=== PATIENT | female | born 1950 | race Caucasian/White ===

== ENCOUNTER 2019-02-09 22:33 | Emergency (ER) | payer MEDICARE, OTHER ==
[~2019-02-09] VITALS: Ht 170.2 cm; Wt 77.1 kg
[~2019-02-09 22:33] MED LIST: Z.0.ATIVAN2 MG PO; Z.0.CRESTOR20 MG PO; Z.0.PROZAC20 MG PO
[2019-02-09] MEDS ORDERED: KETOROLAC TROMETHAMINE 30 MG/ML VIAL IV STA (22:59)
[2019-02-09] MEDS ORDERED: KETOROLAC TROMETHAMINE 30 MG/ML VIAL ONE (23:04)
[2019-02-09] MEDS ORDERED: ULTRAM50 MG PO (23:08)
[2019-02-09] MEDS ORDERED: MEDROL4 MG PO (23:08)
[2019-02-09] MEDS ORDERED: COLACE100 MG PO (23:08)
--- NOTE | 2019-02-09 23:43 | Diagnostic Imaging Report ---
Lumbar Spine Radiographs: 3 views HISTORY: Pain COMPARISON: None available. DISCUSSION: Some of the osseous structures are partially obscured by stool and bowel gas. There are five non-rib bearing lumbar vertebral bodies. Mild levoscoliosis of the lumbar spine. Normal alignment of vertebral bodies. No displaced fracture or compression deformity is identified. Vertebral body heights are maintained. Mild to moderate degenerative changes, most notable at L5-S1. Multilevel lower lumbar spine facet arthropathy. Atherosclerotic calcification of abdominal aorta. IMPRESSION: No acute radiographic abnormality. Mild to moderate degenerative changes, most notable at L5-S1. Signed by: Dr. Allen Hernandez MD on 02/09/2019 11:39 PM
[2019-02-09] MEDS ORDERED: HYDROCODONE/APAP 5MG-325MG TAB ONE (23:54)
[2019-02-09 23:58] VITALS: BP 154/73
[2019-02-10] MEDS ORDERED: HYDROCODONE/APAP 5MG-325MG TAB PO ONE
== END 2019-02-09 23:50 | disposition home or self-care (01) ==
LOC: FSED 22:33
DX: M54.42 Lumbago with sciatica, left side (principal); I10 Essential (primary) hypertension; E11.9 Type 2 diabetes mellitus without complications
CPT/HCPCS: 72100; 99283; J1885

== ENCOUNTER 2019-03-12 20:26 | Emergency (ER) | payer MEDICARE, OTHER ==
[~2019-03-12] VITALS: Ht 170.2 cm; Wt 77.1 kg
[~2019-03-12 20:26] MED LIST changes: +COLACE100 MG PO; +MEDROL4 MG PO; +ULTRAM50 MG PO
--- OUTSIDE RECORDS SUMMARY | 2019-03-12 20:28 | XMS REPORT ---
Author Author [facility] Address Unknown Phone Unavailable Care Team Providers Care Oil Heaterman Name Role Phone Karina TABOR Unavailable Unavailable Payers Payer Name Policy Type Policy Number Effective Date Expiration Date Problems This patient has no known problems. Allergies, Adverse Reactions, Alerts Allergy Name Allergy Type Status Severity Reaction(s) Onset Date Inactive Date Treating Clinician Comments Sulfa (Sulfonamide Antibiotics) DA Active SV 2019-03-06 00:00:00 No Known Contrast Allergies DA Active U 2008-10-09 00:00:00 No Known Food Allergies DA Active U 2008-10-09 00:00:00 No Known Other Allergies DA Active U 2008-10-09 00:00:00 SULFA DRUGS DA Active U 2008-10-09 00:00:00 Sulfa (Sulfonamide Antibiotics) DA Active U 2008-10-08 00:00:00 sulfacetamide DA Active U 2007-05-25 00:00:00 Not Converted 192. See Text. DA Active U 2007-05-25 00:00:00 Medications This patient has no known medications. Encounters Start Date/Time End Date/Time Encounter Type Admission Type Attending Clinicians Care Facility Care Department Encounter ID 2017-04-12 10:43:58 2017-04-12 10:43:58 Emergency [facility] [id number] 2017-04-12 07:26:30 2017-04-12 07:26:30 Emergency [facility] [id number] Results Test Description Test Time Test Comments Text Results Atomic Results Result Comments GLUBED 2019-03-07 16:31:00 GLUBED (test code=GLUBED) 256 mg/dL 74-106 Performed by certified creping machine operator helper at [facility] [id number] 11:03:00* Test Item Value Reference Range Comments GLUBED (test code=GLUBED) 206 mg/dL 74-106 Performed by certified creping machine operator helper at [facility] [id number] 08:09:00* Test Item Value Reference Range Comments GLUBED (test code=GLUBED) 229 mg/dL 74-106 Performed by certified creping machine operator helper at [facility] BASIC METABOLIC [id number] 04:08:00* Test Item Value Reference Range Comments SODIUM (test code=NA) 137 mmol/L 136-145 POTASSIUM (test code=K) 3.7 mmol/L 3.5-5.1 CHLORIDE (test code=CL) 103.0 mmol/L 98-107 CARBON DIOXIDE (test code=CO2) 25.0 mmol/L 21-32 ANION GAP (test code=GAP) 12.7 10-20 GLUCOSE (test code=GLU) 256 mg/dL 74-106 BLOOD UREA NITROGEN (test code=BUN) 22 mg/dL 7-18 GLOMERULAR FILTRATION RATE (test code=GFR) > 60 mL/min >=60 Estimated GFR by using Modified MDRD formula.Chronic kidney disease is defined as either kidney damageor GFR <60 mL/min/1.73 m2 for >3 months. CREATININE (test code=CREAT) 0.60 mg/dL 0.55-1.02 Note change in reference range due to change in reagent. BUN/CREATININE RATIO (test code=BUN/CREA) 36.7 10-20 CALCIUM (test code=CA) 8.5 mg/dL 8.5-10.1 BASIC METABOLIC [id number] 03:53:00* Test Item Value Reference Range Comments SODIUM (test code=NA) 137 mmol/L 136-145 POTASSIUM (test code=K) 3.7 mmol/L 3.5-5.1 CHLORIDE (test code=CL) 103.0 mmol/L 98-107 CARBON DIOXIDE (test code=CO2) mmol/L 21-32 ANION GAP (test code=GAP) 10-20 GLUCOSE (test code=GLU) mg/dL 74-106 BLOOD UREA NITROGEN (test code=BUN) mg/dL 7-18 GLOMERULAR FILTRATION RATE (test code=GFR) mL/min >=60 CREATININE (test code=CREAT) mg/dL 0.55-1.02 BUN/CREATININE RATIO (test code=BUN/CREA) 10-20 CALCIUM (test code=CA) mg/dL 8.5-10.1 CPK-MB [id number] 03:30:00* Test Item Value Reference Range Comments CREATINE KINASE (CK) (test code=CK) 81 IUnit/L 26-208 CKMB (test code=CKMBT) 8.1 ng/mL 0-6.0 RELATIVE % INDEX (test code=REL%) 10.00 % 0.00-2.50 "If the total CK is elevated, the CKMB Fraction must beinterpreted as a Relative % Index, Normal is less than 2.5%"NOTE: Relative % Index is not valid with a normal total CK. CBC W/AUTO [id number] 03:27:00* Test Item Value Reference Range Comments WHITE BLOOD CELL (test code=WBC) 13.4 K/mm3 4.5-12.5 RED BLOOD CELL (test code=RBC) 4.35 mill/mm3 3.7-5.2 HEMOGLOBIN (test code=HGB) 12.7 gram/dL 11.5-15.5 HEMATOCRIT (test code=HCT) 37.6 % 36.0-46.0 MEAN CELL VOLUME (test code=MCV) 86.4 fL 80-98 MEAN CELL HGB (test code=MCH) 29.2 picogram 27.0-33.0 MEAN CELL HGB CONCETRATION (test code=MCHC) 33.8 gram/dL 33.0-36.0 RED CELL DISTRIBUTION WIDTH (test code=RDW) 12.8 % 11.6-16.2 RED CELL DISTRIBUTION WIDTH SD (test code=RDW-SD) 40.2 fL 37.0-51.0 PLATELET COUNT (test code=PLT) 265 K/mm3 150-450 MEAN PLATELET VOLUME (test code=MPV) 9.6 fL 6.7-11.0 NEUTROPHIL % (test code=NT%) 72.2 % 39.0-69.0 IMMATURE GRANULOCYTE % (test code=IG%) 1.9 % 0.0-5.0 LYMPHOCYTE % (test code=LY%) 17.6 % 25.0-55.0 MONOCYTE % (test code=MO%) 6.8 % 0.0-10.0 EOSINOPHIL % (test code=EO%) 1.2 % 0.0-5.0 BASOPHIL % (test code=BA%) 0.3 % 0.0-1.0 NUCLEATED RBC % (test code=NRBC%) 0.0 % 0-0 NEUTROPHIL # (test code=NT#) 9.70 K/mm3 1.8-7.7 IMMATURE GRANULOCYTE # (test code=IG#) 0.25 x10 3/uL 0-0.03 LYMPHOCYTE # (test code=LY#) 2.36 K/mm3 1.0-5.0 MONOCYTE # (test code=MO#) 0.91 K/mm3 0-0.8 EOSINOPHIL # (test code=EO#) 0.16 K/mm3 0.0-0.5 BASOPHIL # (test code=BA#) 0.04 K/mm3 0.0-0.2 NUCLEATED RBC # (test code=NRBC#) 0.00 K/mm3 0.0-0.1 MANUAL DIFF REQUIRED (test code=MDIFF) NO [id number] 03:22:00* Test Item Value Reference Range Comments GLYCOSYLATED HEMOGLOBIN (HA1C) (test code=GLYHGB) 8.6 % HbA1 4.8-6.0 ESTIMATED AVERAGE GLUCOSE (test code=EAG) 200 MG/DL LIPID PROFILE (CORONARY RISK)2019-03-07 03:22:00* Test Item Value Reference Range Comments TRIGLYCERIDES (test code=TRIG) 150 mg/dL 20-150 CHOLESTEROL (test code=CHOL) 153 mg/dL 0-200 CHOLESTEROL/HDL RATIO (test code=CHOLHDL) 3.0 RATIO 0-4.9 RISK ASSOCIATED WITH CHOL/HDL RATIOS: Risk Male Female1/2 AVERAGE 3.43 3.27AVERAGE 4.97 4.442X AVERAGE 9.55 7.053X AVERAGE 23.39 11.04 REFERENCE VALUE IS RELATED TO RISK LEVELS ASRECOMMENDED BY THE ARLIN. HEART, LUNG, AND BLOOD INST. HDL CHOLESTEROL (test code=HDL) 39 mg/dL 40-60 LIPOPROTEIN LDL (test code=LDL) 93 mg/dL 100-129 Reference Interval: mg/dL mmol/L Optimal <100 <2.6Near/above optimal 100-129 2.6- 3.3Borderline High 130-159 3.4-4.1High 160-189 4.1-4.9Very High >=190 >=4.9=========This LDL result is a direct measurement.========= [id number] 23:46:00* Test Item Value Reference Range Comments TROPONIN-I (test code=TROPI) 0.040 ng/mL 0-0.045 COMMENTS TO BOILING OFF WINDER: COLLECT 3 HOURS AFTER PREVIOUS [id number] 21:20:00* Test Item Value Reference Range Comments TROPONIN-I (test code=TROPI) 0.034 ng/mL 0-0.045 COMMENTS TO BOILING OFF WINDER: COLLECT 3 HOURS AFTER PREVIOUS [id number] 21:16:00* Test Item Value Reference Range Comments GLUBED (test code=GLUBED) 252 mg/dL 74-106 Performed by certified creping machine operator helper at [facility] CPK-MB [id number] 16:41:00* Test Item Value Reference Range Comments CREATINE KINASE (CK) (test code=CK) 171 IUnit/L 26-208 CKMB (test code=CKMBT) 13.4 ng/mL 0-6.0 RELATIVE % INDEX (test code=REL%) 7.84 % 0.00-2.50 "If the total CK is elevated, the CKMB Fraction must beinterpreted as a Relative % Index, Normal is less than 2.5%"NOTE: Relative % Index is not valid with a normal total CK. B-TYPE NATRIURETIC [id number] 14:08:00* Test Item Value Reference Range Comments B-TYPE NATRIURETIC PEPTIDE (test code=BNP) 105.56 pgram/mL 0-100 BASIC METABOLIC [id number] 14:00:00* Test Item Value Reference Range Comments SODIUM (test code=NA) 134 mmol/L 136-145 POTASSIUM (test code=K) 3.3 mmol/L 3.5-5.1 CHLORIDE (test code=CL) 101.0 mmol/L 98-107 CARBON DIOXIDE (test code=CO2) 25.0 mmol/L 21-32 ANION GAP (test code=GAP) 11.3 10-20 GLUCOSE (test code=GLU) 209 mg/dL 74-106 BLOOD UREA NITROGEN (test code=BUN) 26 mg/dL 7-18 GLOMERULAR FILTRATION RATE (test code=GFR) > 60 mL/min >=60 Estimated GFR by using Modified MDRD formula.Chronic kidney disease is defined as either kidney damageor GFR <60 mL/min/1.73 m2 for >3 months. CREATININE (test code=CREAT) 0.70 mg/dL 0.55-1.02 Note change in reference range due to change in reagent. BUN/CREATININE RATIO (test code=BUN/CREA) 37.1 10-20 CALCIUM (test code=CA) 9.6 mg/dL 8.5-10.1 [id number] 14:00:00* Test Item Value Reference Range Comments TROPONIN-I (test code=TROPI) 0.046 ng/mL 0-0.045 Results called to [id number] by DENNY 03/06/19 1359Critical results verified and read back by Nurse? Y BASIC METABOLIC [id number] 13:39:00* Test Item Value Reference Range Comments SODIUM (test code=NA) 134 mmol/L 136-145 POTASSIUM (test code=K) 3.3 mmol/L 3.5-5.1 CHLORIDE (test code=CL) 101.0 mmol/L 98-107 CARBON DIOXIDE (test code=CO2) mmol/L 21-32 ANION GAP (test code=GAP) 10-20 GLUCOSE (test code=GLU) mg/dL 74-106 BLOOD UREA NITROGEN (test code=BUN) mg/dL 7-18 GLOMERULAR FILTRATION RATE (test code=GFR) mL/min >=60 CREATININE (test code=CREAT) mg/dL 0.55-1.02 BUN/CREATININE RATIO (test code=BUN/CREA) 10-20 CALCIUM (test code=CA) 9.6 mg/dL 8.5-10.1 [id number] 13:39:00* Test Item Value Reference Range Comments TROPONIN-I (test code=TROPI) ng/mL 0-0.045 CBC W/O [id number] 13:31:00* Test Item Value Reference Range Comments WHITE BLOOD CELL (test code=WBC) 17.5 K/mm3 4.5-12.5 RED BLOOD CELL (test code=RBC) 4.94 mill/mm3 3.7-5.2 HEMOGLOBIN (test code=HGB) 14.3 gram/dL 11.5-15.5 HEMATOCRIT (test code=HCT) 43.5 % 36.0-46.0 MEAN CELL VOLUME (test code=MCV) 88.1 fL 80-98 MEAN CELL HGB (test code=MCH) 28.9 picogram 27.0-33.0 MEAN CELL HGB CONCETRATION (test code=MCHC) 32.9 gram/dL 33.0-36.0 RED CELL DISTRIBUTION WIDTH (test code=RDW) 12.7 % 11.6-16.2 PLATELET COUNT (test code=PLT) 272 K/mm3 150-450 MEAN PLATELET VOLUME (test code=MPV) 10.3 fL 6.7-11.0 CBC W/O [id number] 13:27:00* Test Item Value Reference Range Comments WHITE BLOOD CELL (test code=WBC) K/mm3 4.5-12.5 RED BLOOD CELL (test code=RBC) mill/mm3 3.7-5.2 HEMOGLOBIN (test code=HGB) 14.3 gram/dL 11.5-15.5 HEMATOCRIT (test code=HCT) 43.5 % 36.0-46.0 MEAN CELL VOLUME (test code=MCV) fL 80-98 MEAN CELL HGB (test code=MCH) picogram 27.0-33.0 MEAN CELL HGB CONCETRATION (test code=MCHC) gram/dL 33.0-36.0 RED CELL DISTRIBUTION WIDTH (test code=RDW) % 11.6-16.2 PLATELET COUNT (test code=PLT) K/mm3 150-450 MEAN PLATELET VOLUME (test code=MPV) fL 6.7-11.0 - XR CHEST 1 [id number] 12:00:00 FAX: Timmy Devries MD [place]: St: REG Name: IGLESIA RAE [facility] : [birth year] Age/S: 68/F [address] Unit #: [id number] Loc: [place] [address] Phys: Timmy Devries MD Acct: [id number] Dis Date: Status: REG ER PHONE #: [phone] Exam Date: 03/06/2019 1140 FAX #: [phone] Reason: Shortness of Breath EXAMS: CPT CODE: [id number] XR CHEST 1 V 33230 HISTORY: Shortness of breath. COMPARISON: May 26, 2007. No acute infiltrates, effusion or congestion is noted. Hyperinflation. Calcified granuloma in the right upper lobe and left lower lobe. Cardiomegaly. Rotatory dextroscoliosis of the dorsal spine. IMPRESSION: No acute i nfiltrates, effusion or congestion. at 1200 Reported and signed by: Caio Canchola M.D. CC: Timmy Devries MD Technologist: CHICO DIA, RT(R); Ginny cobos RT(R) Trnscrd Date/Time/By: 03/06/2019 (1200) : By: [email or web address] Orig Print D/T: S: 03/06/2019 (1937) PAGE 1 Signed Report L SPINE 2-3 VEWS - HOPD 2019-02-09 23:37:00 [place] [address] Patient Name: IGLESIA NAVA MR #: [id number] : 1950 Age/Sex: 68/F Req #: [id number] Adm Physician: Ordered by: CLEMENTE TAOBR MD Report #: [id number] Location: [facility] Room/Bed: Procedure: [id number] HOPD/L SPINE 2-3 VEWS - HOPD Exam Date: 02/09/19 Ex am Time: 2311 REPORT STATUS: Signed Lumbar Spine Radiographs: 3 views HISTORY: Pain COMPARISON: None available. DISCUSSION: Some of the osseous structures are partially obs cured by stool and bowel gas. There are five non-rib bearing lumbar vertebr al bodies. Mild levoscoliosis of the lumbar spine. Normal alignment of vertebr al bodies. No displaced fracture or compression deformity is identified. Ve rtebral body heights are maintained. Mild to moderate degenerative changes, mo st notable at L5-S1. Multilevel lower lumbar spine facet arthropathy. Athero sclerotic calcification of abdominal aorta. IMPRESSION: No acute radio graphic abnormality. Mild to moderate degenerative changes, most notable at L5 -S1. Signed by: Dr. Allen Cardenas MD on 02/09/2019 11:39 PM Dictated By: ALLEN CARDENAS MD [phone] Transcribed By: BARTOLOME on 02/09/19 6958 COPY TO: CLEMENTE TABOR SCR MAMM BILATERAL ORI CAD [id number] 16:07:53 - SCR MAMM BILATERAL ORI CAD DIGITALBILATERAL DIGITAL SCREENING MAMMOGRAM 3D/2D WITH CAD: 06/17/2018CLINICAL: Asymptomatic. Digital breast tomosynthesis was performed in addition to routine CC and MLO views. Current mammographic images were evaluated by either a [employer] M-Vu or a [employer] CAD (computer aided detection system). Comparison is made to exams dated 08/22/2016 mammogram - [facility] and 07/17/2011 mammogram - [facility]. There are scattered fibroglandular tissues in both breasts. No suspicious mass, architectural distortion, malignant type calcification, or lymph node abnormali ty detected. Breast architecture is stable compared to prior exams.IMPRESSION: NEGATIVEThere is no mammographic evidence of malignancy. Resume annual screening mammography in one year. Eduar orlando/cruz:06/18/2018 16:0 7:53 copy to: Syl Contreras, ph: [phone], fax: [phone] Tech nologist: Della DU, [facility] sent: BIRADS 1-2 Lucinda l Mammogram BI-RADS: 1 Negative
[2019-03-12 21:19] LABS: BASOPHILS % 0.2 % (0.0-1.0); BILIRUBIN,URINE NEGATIVE (NEGATIVE); CLARITY,URINE SL CLOUDY (CLEAR); COLOR,URINE YELLOW (YELLOW); EOSINOPHILS # (AUTO) 0.2 (0.0-0.4); EOSINOPHILS % 2.1 % (0.0-6.0); HEMATOCRIT 42.5 % (34.2-44.1); HEMOGLOBIN 14.5 g/dL (12.0-16.0); KETONES,URINE NEGATIVE (NEGATIVE); LEUKOCYTE ESTERASE ,URINE TRACE (NEGATIVE); MEAN CORPUSCULAR HEMOGLOBIN 29.2 pg (28-32); MEAN CORPUSCULAR HGB CONC 34.1 g/dL (31-35); MEAN CORPUSCULAR VOLUME 85.7 fL (81-99); MONOCYTES # (AUTO) 0.7 (0.2-0.8); MONOCYTES % 6.9 % (4.4-11.3); NEUTROPHILS # (AUTO) 7.4 (2.1-6.9); NEUTROPHILS % 70.7 % (38.7-80.0); NITRITE,URINE NEGATIVE (NEGATIVE); PLATELET COUNT 293 x10e3/uL (140-360); PROTEIN,URINE DIPSTICK NEGATIVE (NEGATIVE); RED BLOOD COUNT 4.96 x10e6/uL (3.6-5.1); RED CELL DISTRIBUTION WIDTH 12.8 % (11.7-14.4); URINE UROBILINOGEN 0.2 mg/dL (0.2 - 1)
[2019-03-12 21:36] LABS: ALANINE AMINOTRANSFERASE 45 IU/L (0-55); ALBUMIN 3.8 g/dL (3.5-5.0); ALBUMIN/GLOBULIN RATIO 1.1 (0.8-2.0); ALKALINE PHOSPHATASE 52 IU/L (40-150); ANION GAP 19.1 mmol/L (8-16); BLOOD UREA NITROGEN 27 mg/dL (7-26); BUN/CREATININE RATIO 31 (6-25); CALCIUM 9.8 mg/dL (8.4-10.2); CARBON DIOXIDE 22 mmol/L (22-29); CHLORIDE 97 mmol/L (98-107); CREATINE KINASE 55 IU/L (29-168); CREATININE, SERUM 0.86 mg/dL (0.57-1.11); EST GLOMERULAR FILTRATION RATE > 60 ML/MIN (60-); GLUCOSE 338 mg/dL (74-118); POTASSIUM 3.1 mmol/L (3.5-5.1); SODIUM 135 mmol/L (136-145)
[2019-03-12 21:58] LABS: BACTERIA,URINE FEW /HPF; EPITHELIAL CELLS,URINE FEW /LPF; WBC,URINE (MAN) 0-5 /HPF (0-5)
[2019-03-12] MEDS ORDERED: IOPAMIDOL 370 MG/ML 200 ML INFUS..BTL INJ ONE (22:48)
[2019-03-12] MEDS ORDERED: SODIUM CHLORIDE 0.9% 50ML 50 ML ONE (22:48)
--- NOTE | 2019-03-12 23:18 | Diagnostic Imaging Report ---
EXAM: CT Chest WITH contrast 03/12/2019 8:44 PM INDICATION: Shortness of breath. COMPARISON: None TECHNIQUE: Chest was scanned utilizing a multidetector helical scanner from the lung apex through the level of the adrenal glands without administration of IV contrast. Coronal and sagittal reformations were obtained. Routine protocol was performed. IV CONTRAST: 100 cc Isovue 300 RADIATION DOSE: Total DLP: 510.95 mGy*cm Estimated effective dose: (DLP x 0.014 x size factor) mSv COMPLICATIONS: None FINDINGS: LINES/ TUBES: None. LUNGS AND AIRWAYS: Mild scattered patchy groundglass density bilaterally are nonspecific. Patchy density in the lingula posteriorly may represent atelectasis. Airways are normal. PLEURA: Bilateral calcified pleural plaques. There is no pleural effusion or pneumothorax. HEART AND MEDIASTINUM: The thyroid gland is normal. No mediastinal, hilar or axillary lymphadenopathy. The heart is normal in size, however, there is diffuse thickening of the left ventricular myocardium with the intraventricular septum measuring up to 2.5 cm. Calcifications of the left LAD and left circumflex. There is no pericardial effusion. Mild calcification of the aortic arch without aneurysmal dilatation. Lipomatosis of the mediastinum. UPPER ABDOMEN: Limited non-contrast views of the upper abdomen show near diffuse ill-defined low-attenuation throughout the medial segment of the left hepatic lobe which may represent focal fatty infiltration not completely evaluated with this examination. The adrenal glands are normal. BONES: DJD of the glenohumeral joints bilaterally. The peak screws transfix the right humeral head. Degenerative changes of the thoracal lumbar spine with thoracic dextroscoliosis. SOFT TISSUES: Unremarkable. IMPRESSION: 1. Left ventricular hypertrophy. Recommend cardiology consultation and possibly echocardiogram. 2. Bilateral calcified pleural plaques may reflect prior asbestos exposure. 3. No evidence of pulmonary embolism. 4. Near diffuse ill-defined low-attenuation throughout the medial segment of the left hepatic lobe which may represent focal fatty infiltration; recommend further evaluation with nonemergent MRI of abdomen without and with contrast liver mass protocol. Signed by: Dr. Ame Cisneros M.D. on 03/12/2019 11:15 PM
[2019-03-13 01:09] LABS: CREATINE KINASE MB 6.6 ng/mL (0-5.0)
[2019-03-13] MEDS ORDERED: ALBUTEROL/IPRATROPIUM 3 ML NEB NEB ONE (01:45)
[2019-03-13 02:01] LABS: AMPHETAMINES SCREEN,URINE NEGATIVE (NEGATIVE); BENZODIAZEPINES SCREEN,URINE NEGATIVE (NEGATIVE); PHENCYCLIDINE SCREEN,URINE NEGATIVE (NEGATIVE)
[2019-03-13 04:17] VITALS: BP 104/76
== END 2019-03-13 03:06 | disposition home or self-care (01) ==
LOC: ER 20:26
DX: E11.65 Type 2 diabetes mellitus with hyperglycemia (principal); R00.0 Tachycardia, unspecified; R06.02 Shortness of breath; I10 Essential (primary) hypertension; E78.5 Hyperlipidemia, unspecified; I25.2 Old myocardial infarction; Z87.891 Personal history of nicotine dependence
CPT/HCPCS: 36415; 71260; 80053; 80307; 81001; 82550; 82553; 82948; 84484; 85025; 93005; 94640; 99284; Q9967

== ENCOUNTER 2019-05-09 01:28 | Emergency (ER) | payer MEDICARE, OTHER ==
[~2019-05-09] VITALS: Ht 170.2 cm; Wt 77.1 kg
== END 2019-05-09 02:19 | disposition home or self-care (01) ==
LOC: FSED 01:28
DX: N30.01 Acute cystitis with hematuria (principal); I10 Essential (primary) hypertension; E11.9 Type 2 diabetes mellitus without complications; E78.5 Hyperlipidemia, unspecified; I25.2 Old myocardial infarction
CPT/HCPCS: 81003; 99282

== ENCOUNTER 2025-02-24 08:08 | Day surgery (SDC) | payer MEDICARE ==
[2025-02-20 09:19] LABS: BASOPHILS % 0.3 % (0.0-1.0); EOSINOPHILS % 3.7 % (0.0-6.0); LYMPHOCYTES % 26.8 % (18.0-39.1); MONOCYTES % 6.2 % (4.4-11.3); NEUTROPHILS % 62.7 % (38.7-80.0); RED CELL DISTRIBUTION WIDTH 12.8 % (11.7-14.4)
[2025-02-20 09:59] LABS: EST GLOMERULAR FILTRATION RATE 87.0 ML/MIN (>=60)
[2025-02-20 10:33] LABS: CHOL/HDL RATIO 2.1 (3.0-3.6); LDL CHOLESTEROL 21.0 MG/DL (60-130)
[~2025-02-24] VITALS: Ht 167.6 cm; Wt 68.9 kg
[2025-02-24] VITALS (15 sets, daily range): BP systolic 100–153; BP diastolic 63–91; PULSE 63–77; RESP 13–23; TEMP 97.1–97.6; O2SAT 97–100
[~2025-02-24 08:08] MED LIST changes: +ATROVENT HFA12.9 GM INH; +CARVEDILOL3.125 MG PO; +COREG6.25 MG PO; +DICYCLOMINE HCL10 MG PO; +ESCITALOPRAM OX20 MG PO; +FAMOTIDINE20 MG PO; +METFORMIN HCL500 MG PO; +METHOTREXATE2.5 MG PO; +MOUNJARO5 MG/0.5 M; +PREDNISONE20 MG PO; +PROZAC40 MG PO; +ROSUVASTATIN CA10 MG PO; +SODIUM CHLORIDE 0.9% 1000ML 1,000 ML ONE; +TRIAMTERENE-HC1 EAC2 PO; +VASOTEC5 MG PO; +ZETIA10 MG PO
[2025-02-24] MEDS ORDERED: VERAPAMIL HCL 2.5 MG/ML 2 ML VIAL ONE (08:44)
[2025-02-24] MEDS ORDERED: HEPARIN SOD (PORCINE) 1000 UNIT/ML 30ML ONE (08:44)
[2025-02-24] MEDS ORDERED: LIDOCAINE HCL 2% LOCAL 20 ML VIAL ONE (08:44)
[2025-02-24] MEDS ORDERED: IOPAMIDOL 370 MG/ML 100 ML INFUS..BTL INJ ONE ×2 (08:45→12:30)
[2025-02-24] MEDS ORDERED: HEPARIN SOD/SOD CHLORIDE 2,000 ML ONE (08:45)
[2025-02-24] MEDS ORDERED: NITROGLYCERIN/D5W 200 MCG/ML 250 ML ONE (08:45)
[2025-02-24] MEDS: DIPHENHYDRAMINE HCL 25 MG CAP ONE (11:46)
[2025-02-24] MEDS: ALPRAZOLAM 0.5 MG TAB ONE (11:46)
[2025-02-24] MEDS ORDERED: MIDAZOLAM HCL 2 MG/2 ML VIAL ONE ×2 (12:03→12:23)
[2025-02-24] MEDS ORDERED: FENTANYL CITRATE/PF 100MCG/2 ML INJ ONE (12:03)
[2025-02-24] MEDS ORDERED: ASPIRIN 325 MG TAB ONE (12:42)
[2025-02-24] MEDS ORDERED: PRASUGREL 10 MG TAB ONE (12:42)
[2025-02-24] MEDS ORDERED: LIDOCAINE 1% W/EPINEPHRINE 20 ML VIAL ONE (14:03)
== END 2025-02-24 17:15 | disposition home or self-care (01) ==
LOC: CATH LAB 08:08
PROVIDERS: ATTEND Internal Medicine Interventional Cardiology
DX: I25.118 Atherosclerotic heart disease of native coronary artery with other forms of angina pectoris (principal); I10 Essential (primary) hypertension; I25.2 Old myocardial infarction; E78.00 Pure hypercholesterolemia, unspecified; E11.9 Type 2 diabetes mellitus without complications; M19.90 Unspecified osteoarthritis, unspecified site; F10.90 Alcohol use, unspecified, uncomplicated; Z87.891 Personal history of nicotine dependence; Z88.2 Allergy status to sulfonamides; Z79.84 Long term (current) use of oral hypoglycemic drugs; Z79.82 Long term (current) use of aspirin; Z79.85 Long-term (current) use of injectable non-insulin antidiabetic drugs
CPT/HCPCS: 36415 ×2; 76937; 80053; 80061; 82948; 83880; 85025; C1725; C1760; C1769 ×2; C1874; C1887; C9600; J1644; J2003; J2250; J3010; J7030; Q9967; 92928; 93458; 99152; 99153

== ENCOUNTER 2025-05-10 19:44 | Emergency (ER) | payer MEDICARE ==
[~2025-05-10] VITALS: Ht 167.6 cm; Wt 68.9 kg
[~2025-05-10 19:44] MED LIST changes: -SODIUM CHLORIDE 0.9% 1000ML 1,000 ML ONE
[2025-05-10 20:10] VITALS: RESP 16
[2025-05-10] MEDS ORDERED: CEPHALEXIN500 MG PO (20:22)
[2025-05-10] MEDS: LIDOCAINE HCL 1% LOCAL INJ 20 ML VIAL INJ STA (20:32)
[2025-05-10 21:10] VITALS: PULSE 83
[2025-05-10 21:17] VITALS: BP 95/78; PULSE 83; RESP 17; O2SAT 100
== END 2025-05-10 21:15 | disposition home or self-care (01) ==
LOC: ER 19:50
DX: S61.411A Laceration without foreign body of right hand, initial encounter (principal); W18.02XA Striking against glass with subsequent fall, initial encounter; Y93.01 Activity, walking, marching and hiking; Y92.89 Other specified places as the place of occurrence of the external cause; I10 Essential (primary) hypertension; E11.9 Type 2 diabetes mellitus without complications; E78.5 Hyperlipidemia, unspecified; I25.2 Old myocardial infarction; Z86.79 Personal history of other diseases of the circulatory system; Z96.652 Presence of left artificial knee joint
CPT/HCPCS: 12002; 73120; 99283; J2003